=== PATIENT | male | born 1980 | race Caucasian/White ===

== ENCOUNTER 2017-08-02 13:47 | Emergency (ER) | payer OTHER ==
[2017-08-02 14:02] VITALS: BP 137/75; RESP 18; TEMP 97.5
[2017-08-02] MEDS ORDERED: PROPARACAINE/FLUORESCEIN SOD 100 DROP/5 ML BOTTLE OU STA (14:06)
--- NOTE | 2017-08-02 14:18 | ED PDOC ---
HPI: Eye Injury/Pain Time Seen by Provider: 08/02/17 14:03 Chief Complaint (Nursing): Eye Problem Chief Complaint (Provider): redness to left eye History Per: Patient History/Exam Limitations: no limitations Onset/Duration Of Symptoms: Days (x7) Current Symptoms Are (Timing): Still Present Wears Contact Lens?: No Associated Symptoms: denies: Pain, Decreased Vision, Itching, Discharge From Eye Additional Complaint(s): 36 y/o male presents to ED with redness to left eye x 1 week. Patient denies any trauma to the area. He denies foreign body sensation or vision changes. Patient does not take any blood thinners. He denies any headache or dizziness. Patient does not wear contacts or glasses. PMD: none provided Past Medical History Reviewed: Historical Data, Nursing Documentation, Vital Signs Vital Signs: Last Vital Signs Temp 97.5 F L 08/02/17 13:58 Pulse 125 H 08/02/17 13:58 Resp 18 08/02/17 13:58 BP 137/75 08/02/17 13:58 Pulse Ox 95 08/02/17 13:58 - Medical History PMH: No Chronic Diseases - Surgical History Other surgeries: lasik surgery - Family History Family History: States: No Known Family Hx - Living Arrangements Living Arrangements: With Family - Social History Current smoker - smoking cessation education provided: No Ex-Smoker (has not smoked in the last 12 months): No Alcohol: Social Drugs: Denies - Home Medications Home Medications: Ambulatory Orders Medication Instructions Recorded Tobramycin [Tobrex] 5 ml TOP QID #1 bottle 08/02/17 - Allergies Allergies/Adverse Reactions: Allergies Allergy/AdvReac Type Severity Reaction Status Date / Time No Known Allergies Allergy Verified 08/02/17 13:57 Review of Systems ROS Statement: Except As Marked, All Systems Reviewed And Found Negative Eyes: Positive for: Other (Left eye redness with no pain or discharge.) Neurological: Negative for: Headache, Dizziness Physical Exam - Reviewed Nursing Documentation Reviewed: Yes Vital Signs Reviewed: Yes - Physical Exam Appears: Positive for: Well, Non-toxic, No Acute Distress Head Exam: Positive for: ATRAUMATIC, NORMAL INSPECTION, NORMOCEPHALIC Skin: Positive for: Normal Color. Negative for: Rash Eye Exam: Positive for: EOMI, PERRL, Other (Diffuse subconjunctival hemorrhage noted to left eye, no FB, right eye unremarkable). Negative for: Periorbital swelling, Periorbital tenderness ENT: Positive for: Normal ENT Inspection Neurologic/Psych: Positive for: Alert, Oriented (x3) - ECG O2 Sat by Pulse Oximetry: 95 (RA) Pulse Ox Interpretation: Normal Medical Decision Making Medical Decision Making: Time: 13:58 Impression: 36 y/0 with left eye redness Procedure Note: 2 drops of fluorescein applied to left eye. Examination with UV light demonstrates cornea abrasion noted centrally. No foreign body noted. Procedure tolerated well by patient with no complications. Patient given tobramycin eyedrops. He was advised that some conjunctival hemorrhage will clear up on its own. Patient was referred to stenographer secretary land commissioner. Scribe Attestation: Documented by Michelle Aguero acting as a scribe Bette Lee PA-C. MD Scribe Attestation: All medical record entries made by the Scribe were at my direction and personally dictated by me. I have reviewed the chart and agree that the record accurately reflects my personal performance of the history, physical exam, medical decision making, and the department course for this patient. I have also personally directed, reviewed, and agree with the discharge instructions and disposition. Disposition - Clinical Impression Clinical Impression: Subconjunctival hemorrhage of left eye, Corneal abrasion, left - Patient ED Disposition Is Patient to be Admitted: No Counseled Patient/Family Regarding: Diagnosis, Need For Followup, Rx Given - Disposition Referrals: Jeffrey Espinoza MD [Staff Provider] - Disposition: Routine/Home Disposition Time: 14:17 Condition: STABLE Additional Instructions: Apply drops as directed. Excess blood in eye will clear up on its own. Follow- up with [facility] for any persistent symptoms. Prescriptions: Tobramycin [Tobrex] 5 ml TOP QID #1 bottle Instructions: Corneal Abrasion (DC), Subconjunctival Hemorrhage Forms: [facility] (Lao)
--- NOTE | 2017-08-02 14:20 | ED PDOC ---
HPI: Eye Injury/Pain Time Seen by Provider: 08/02/17 14:03 Chief Complaint (Nursing): Eye Problem Chief Complaint (Provider): Eye Problem History Per: Patient History/Exam Limitations: no limitations Onset/Duration Of Symptoms: Days (x7 days) Current Symptoms Are (Timing): Still Present Quality: denies: "Pain" Wears Contact Lens?: No Associated Symptoms: denies: Pain, Decreased Vision, Itching, Discharge From Eye Additional Complaint(s): 36 y/o male presents to the ED with an eye problem. Patient states he noticed 7 days ago after waking up in the morning. He is complaining of eye redness and states he has had this once before in the past. He denies any pain, vision changes, discharge, itchiness, or light sensitivity. Patient denies taking any medication recently including Advil or Aspirin. Of note, patient has had lasik eye surgery in 2004. PMD: none provided Past Medical History Reviewed: Historical Data, Nursing Documentation, Vital Signs Vital Signs: Last Vital Signs Temp 97.5 F L 08/02/17 13:58 Pulse 125 H 08/02/17 13:58 Resp 18 08/02/17 13:58 BP 137/75 08/02/17 13:58 Pulse Ox 95 08/02/17 13:58 - Medical History PMH: No Chronic Diseases - Surgical History Other surgeries: Lasik - Family History Family History: States: No Known Family Hx - Social History Current smoker - smoking cessation education provided: No Ex-Smoker (has not smoked in the last 12 months): No Alcohol: Social Drugs: Denies - Allergies Allergies/Adverse Reactions: Allergies Allergy/AdvReac Type Severity Reaction Status Date / Time No Known Allergies Allergy Verified 08/02/17 13:57 Review of Systems ROS Statement: Except As Marked, All Systems Reviewed And Found Negative Eyes: Positive for: Redness. Negative for: Pain, Vision Change, Other ( discharge, itchiness, or light sensitivity) Physical Exam - Reviewed Nursing Documentation Reviewed: Yes Vital Signs Reviewed: Yes - Physical Exam Appears: Positive for: Non-toxic, No Acute Distress Head Exam: Positive for: ATRAUMATIC, NORMAL INSPECTION, NORMOCEPHALIC Skin: Positive for: Normal Color, Warm, Dry Eye Exam: Positive for: EOMI, PERRL, Conjunctival injection (diffuse conjunctival sub hemorrhage left eye) Neurologic/Psych: Positive for: Alert, Oriented (x3) - ECG O2 Sat by Pulse Oximetry: 95 Disposition - Disposition Forms: [facility] (Nepalese)
[2017-08-02 14:26] VITALS: PULSE 96
[2017-08-02 14:27] VITALS: O2SAT 95
[2017-08-02] MEDS ORDERED: PROPARACAINE/FLUORESCEIN SOD 100 DROP/5 ML BOTTLE OU ONE (14:30)
== END 2017-08-02 14:55 | disposition home or self-care (01) ==
LOC: H.ER 13:47
DX: H11.32 Conjunctival hemorrhage, left eye (principal); S05.02XA Injury of conjunctiva and corneal abrasion without foreign body, left eye, initial encounter; Y92.89 Other specified places as the place of occurrence of the external cause